=== PATIENT | male | born 1985 | race Hispanic/Latino ===

== ENCOUNTER 2021-11-23 11:28 | Emergency (ER) | payer SELFPAY ==
[~2021-11-23] VITALS: Ht 177.8 cm; Wt 90.7 kg
[2021-11-23 11:29] VITALS: BP 160/89
[2021-11-23] MEDS ORDERED: LIDOCAINE HCL MPF 1% 5ML VIAL ONE (12:45)
[2021-11-23] MEDS ORDERED: IBUP-2070 PO (13:05)
[2021-11-23] MEDS ORDERED: TETANUS/DIPHTHERIA TOXOID [ADULT] 0.5 ML VIAL IM ONE (13:30)
== END 2021-11-23 13:34 | disposition home or self-care (01) ==
LOC: EDH 11:28
DX: S61.411A Laceration without foreign body of right hand, initial encounter (principal); X58.XXXA Exposure to other specified factors, initial encounter; Y93.89 Activity, other specified; Y92.89 Other specified places as the place of occurrence of the external cause; Y99.8 Other external cause status
CPT/HCPCS: 12001; 73130; 90471; 90714; 99283; J3490